=== PATIENT | female | born 1960 | race African-American/Black ===

== ENCOUNTER 2021-02-27 19:34 | Emergency (ER) | payer MEDICAID ==
[~2021-02-27] VITALS: Ht 165.1 cm; Wt 91.0 kg
[2021-02-27 19:45] VITALS: BP 140/99
[2021-02-27] MEDS ORDERED: BACITRACIN ZINC OINT UDPKT TOP ONE (20:15)
[2021-02-27] MEDS ORDERED: ACETAMINOPHEN 325MG TABLET PO ONE (20:15)
[2021-02-27] MEDS ORDERED: TETANUS, DIPHTHERIA, PERTUSSIS VAC/PF 0.5ML (>10YR OLD) IM ONE (20:15)
[2021-02-27] MEDS ORDERED: CEPH500C2 MT (20:52)
== END 2021-02-27 21:29 | disposition home or self-care (01) ==
LOC: ER 19:34
DX: S61.012A Laceration without foreign body of left thumb without damage to nail, initial encounter (principal); W26.0XXA Contact with knife, initial encounter; Y93.G3 Activity, cooking and baking; Y92.010 Kitchen of single-family (private) house as the place of occurrence of the external cause; E11.9 Type 2 diabetes mellitus without complications; I10 Essential (primary) hypertension; E78.00 Pure hypercholesterolemia, unspecified
CPT/HCPCS: 90471; 90715; 99283; A4217; Z7610